=== PATIENT | male | born 1975 | race Caucasian/White ===

== ENCOUNTER 2021-03-01 01:54 | Emergency (ER) | payer BC ==
[2021-03-01] MEDS ORDERED: LIDOCAINE 1% MPF 30 ML VIAL ONE (03:57)
[2021-03-01] MEDS ORDERED: TETANUS & DIPHTHERIA TOX,ADULT 0.5 ML VIAL ONE (03:57)
[2021-03-01] MEDS ORDERED: ACETAMINOPHEN 500 MG TAB ONE (03:57)
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
[2021-03-01 06:18] VITALS: TEMP 98.8
[2021-03-01 06:19] VITALS: O2SAT 98
[2021-03-01 06:22] VITALS: BP 137/90
--- NOTE | 2021-03-01 19:16 | RAD REPORT ---
EXAM DESCRIPTION: CT - Head Brain Wo Cont - 03/01/2021 6:45 am CLINICAL HISTORY: The patient is 45 years old and is Male; TRAUMA TECHNIQUE: Axial computed tomography images of the head/brain without intravenous contrast. Sagitt al and coronal reformatted images were created and reviewed. This CT exam was performed using one o r more of the following dose reduction techniques: automated exposure control, adjustment of the mA and/or kV according to patient size, and/or use of iterative reconstruction technique. COMPARISON: No relevant prior studies available. FINDINGS: Brain: Unremarkable. No hemorrhage. No significant white matter disease. No edema. Ventricles: Unremarkable. No ventriculomegaly. Bones/joints: Unremarkable. No acute fracture. Soft tissues: Left frontal scalp swelling. Sinuses: Maxillary, ethmoid, and frontal sinus mucosal thickening. Mastoid air cells: Unremarkable as visualized. No mastoid effusion. * A single impression for all exams can be found at the end of this report EXAM DESCRIPTION: CT Maxillofacial Without Intravenous Contrast CLINICAL HISTORY: The patient is 45 years old and is Male; TRAUMA TECHNIQUE: Axial computed tomography images of the face without intravenous contrast. Sagittal and coronal reformatted images were created and reviewed. This CT exam was performed using one or more of the following dose reduction techniques: automated exposure control, adjustment of the mA and/o r kV according to patient size, and/or use of iterative reconstruction technique. COMPARISON: No relevant prior studies available. FINDINGS: Bones/joints: No acute fracture. Soft tissues: Left frontal scalp swelling. Orbits: Unremarkable. Sinuses: Maxillary, ethmoid, and frontal sinus mucosal thickening. No air-fluid levels. * A single impression for all exams can be found at the end of this report IMPRESSION: CT Head Without Intravenous Contrast: No acute intracranial abnormality. CT Maxillofacial Without Intravenous Contrast: No acute fracture. Electronically signed by: River Rhodes MD 03/01/2021 4:39 AM [facility] Due to temporary technical issues with the PACS/Fluency reporting system, reports are being signed by the in house radiologists without review as a courtesy to insure prompt reporting. The interpreting radiologist is fully responsible for the content of the report.
--- NOTE | 2021-03-01 19:17 | RAD REPORT ---
EXAM DESCRIPTION: CT - Facial Bones W/ Mpr - 03/01/2021 6:44 am CLINICAL HISTORY: The patient is 45 years old and is Male; TRAUMA TECHNIQUE: Axial computed tomography images of the head/brain without intravenous contrast. Sagitt al and coronal reformatted images were created and reviewed. This CT exam was performed using one o r more of the following dose reduction techniques: automated exposure control, adjustment of the mA and/or kV according to patient size, and/or use of iterative reconstruction technique. COMPARISON: No relevant prior studies available. FINDINGS: Brain: Unremarkable. No hemorrhage. No significant white matter disease. No edema. Ventricles: Unremarkable. No ventriculomegaly. Bones/joints: Unremarkable. No acute fracture. Soft tissues: Left frontal scalp swelling. Sinuses: Maxillary, ethmoid, and frontal sinus mucosal thickening. Mastoid air cells: Unremarkable as visualized. No mastoid effusion. * A single impression for all exams can be found at the end of this report EXAM DESCRIPTION: CT Maxillofacial Without Intravenous Contrast CLINICAL HISTORY: The patient is 45 years old and is Male; TRAUMA TECHNIQUE: Axial computed tomography images of the face without intravenous contrast. Sagittal and coronal reformatted images were created and reviewed. This CT exam was performed using one or more of the following dose reduction techniques: automated exposure control, adjustment of the mA and/or kV according to patient size, and/or use of iterative reconstruction technique. COMPARISON: No relevant prior studies available. FINDINGS: Bones/joints: No acute fracture. Soft tissues: Left frontal scalp swelling. Orbits: Unremarkable. Sinuses: Maxillary, ethmoid, and frontal sinus mucosal thickening. No air-fluid levels. * A single impression for all exams can be found at the end of this report IMPRESSION: CT Head Without Intravenous Contrast: No acute intracranial abnormality. CT Maxillofacial Without Intravenous Contrast: No acute fracture. Electronically signed by: River Rhodes MD 03/01/2021 4:39 AM [facility] Due to temporary technical issues with the PACS/Fluency reporting system, reports are being signed by the in house radiologists without review as a courtesy to insure prompt reporting. The interpreting radiologist is fully responsible for the content of the report.
== END 2021-03-01 06:14 | disposition home or self-care (01) ==
LOC: ER 01:54
PROC: 0CQ00ZZ Repair Upper Lip, Open Approach (ICD-10-PCS; principal; 2021-03-01)
DX: S00.83XA Contusion of other part of head, initial encounter (principal); Y04.2XXA Assault by strike against or bumped into by another person, initial encounter; Y93.89 Activity, other specified; Y92.9 Unspecified place or not applicable; S01.511A Laceration without foreign body of lip, initial encounter
CPT/HCPCS: 70450; 70486; 76377; 90471; 90714; 99284